=== PATIENT | female | born 1965 | race Caucasian/White ===

== ENCOUNTER 2018-07-31 10:28 | Emergency (ER) | payer OTHER ==
[2018-07-31] MEDS: DIPHENHYDRAMINE 50 MG CAP PO (12:42)
[2018-07-31] MEDS: predniSONE 20 MG TAB PO (12:42)
== END 2018-07-31 13:07 | disposition home or self-care (01) ==
LOC: FTE 10:28
DX: L50.0 Allergic urticaria (principal); E11.9 Type 2 diabetes mellitus without complications
CPT/HCPCS: 99283; J7512